=== PATIENT | female | born 1985 | race Caucasian/White ===

== ENCOUNTER 2018-12-24 13:19 | Outpatient (REF) | payer MEDICAID, SELFPAY ==
[2018-12-25 13:07] LABS: Chlamydia Result Negative; GC Result Negative; Specimen Description CERVIX
== END 2018-12-24 13:39 ==
LOC: LBN 13:19
PROVIDERS: PCP Nurse Practitioner Adult Health; Visit Provider Nurse Practitioner Family
DX: Z11.3 Encounter for screening for infections with a predominantly sexual mode of transmission (principal)
CPT/HCPCS: 87491; 87591

== ENCOUNTER 2021-07-29 11:47 | Outpatient (REF) | payer SELFPAY ==
[2021-08-01 12:49] LABS: COVID-19 RT-PCR UVMMC Result Negative (Negative)
== END 2021-07-29 11:48 | disposition home or self-care (01) ==
LOC: LBN 11:47
PROVIDERS: PCP Nurse Practitioner Adult Health; Visit Provider Physician Assistant Medical
DX: Z20.822 Contact with and (suspected) exposure to COVID-19 (principal); R51.9 Headache, unspecified
CPT/HCPCS: U0003

== ENCOUNTER 2022-09-28 13:10 | Outpatient (REF) | payer BC, SELFPAY ==
[2022-09-28 15:12] LABS: Abs Immature Grans 0.03 10^3/uL (0.0-0.06); Absolute Basophil Count 0.07 10^3/uL (0.0-0.2); Absolute Eosinophil Count 0.37 10^3/uL (0.0-0.7); Absolute Lymphocyte Count 2.28 10^3/uL (1.2-3.4); Absolute Monocyte Count 0.61 10^3/uL (0.1-0.8); Absolute Neutrophil Count 5.67 10^3/uL (1.2-6.7); Basophils % 0.8; Eosinophils % 4.1; HGB 14.1 g/dL (11.2-15.7); Immature Grans % 0.3; Lymphocytes % 25.2; MCH 29.3 pg (27.0-33.0); MCHC 33.6 % (32.0-36.0); MCV 87 fL (80-95); MPV 9.8 fL (8.0-11.0); Monocytes % 6.8; Neutrophils % 62.8; Platelet Count 372 10^3/uL (130-400); RBC 4.81 10^6/uL (3.93-5.22); RDW 12.5 % (11.7-14.6); WBC 9.03 10^3/uL (4.4-10.8)
[2022-09-28 15:32] LABS: ALT 35 U/L (14-59); AST 23 U/L (15-37); Alkaline Phosphatase 44 U/L (46-116); Anion Gap 7.8 mmol/L (3-11); BUN 14 mg/dL (7-18); Bilirubin, Total 0.3 mg/dL (0.2-1.0); CO2 26.2 mmol/L (21.0-32.0); CREATININE 0.7 mg/dL (0.55-1.02); Calcium 9.5 mg/dL (8.5-10.1); Calculated LDL 94 mg/dL (<100); Chloride 104 mmol/L (98-107); Cholesterol 201 mg/dL (<200); Estimated GFR 114.16 (mL/min/1.73m2); Glucose 92 mg/dL (74-106); HDL Cholesterol 98 mg/dL (40-60); Potassium 4.1 mmol/L (3.5-5.1); Sodium 138 mmol/L (136-145); TSH (W/Ref FT4) 2.99 uIU/mL (0.36-3.74); Triglyceride 45 mg/dL (<150)
== END 2022-09-28 13:11 | disposition home or self-care (01) ==
LOC: NCHCN 13:10
PROVIDERS: PCP Nurse Practitioner Adult Health; Visit Provider Nurse Practitioner Family
DX: F32.9 Major depressive disorder, single episode, unspecified (principal); G44.229 Chronic tension-type headache, not intractable; Z00.00 Encounter for general adult medical examination without abnormal findings; Z71.89 Other specified counseling; R53.83 Other fatigue; Z82.41 Family history of sudden cardiac death
CPT/HCPCS: 80053; 80061; 84443; 85025

== ENCOUNTER 2023-06-15 18:29 | Outpatient (REF) | payer BC, SELFPAY ==
[2023-06-15 15:45] LABS: Bacteria Rare HPF (Negative); C & S Indicated? C&S Done As Ordered; Crystals Negative HPF (Negative); Epithelial Cells Rare HPF (Negative); Mucus Negative (Negative); Other Cells Rare Transitional (Negative); RBC >50 HPF (0-2)
== END 2023-06-15 18:30 | disposition home or self-care (01) ==
LOC: LBN 18:29
PROVIDERS: PCP Nurse Practitioner Adult Health; Visit Provider Physician Assistant Medical
DX: R30.0 Dysuria (principal); B96.20 Unspecified Escherichia coli [E. coli] as the cause of diseases classified elsewhere
CPT/HCPCS: 87077; 81015; 87086; 87186

== ENCOUNTER 2023-07-19 19:56 | Outpatient (REF) | payer BC, SELFPAY | END 2023-07-19 19:57 | disposition home or self-care (01) | LOC: LBN 19:56 | PROVIDERS: PCP Nurse Practitioner Adult Health; Visit Provider Physician Assistant Medical | DX: N89.8 Other specified noninflammatory disorders of vagina (principal) | CPT/HCPCS: 87480; 87510; 87660 ==